=== PATIENT | female | born 1975 | race American Indian/Alaskan Native ===

== ENCOUNTER 2021-09-03 08:53 | Outpatient (CLI) | payer BC ==
[2021-09-03] MEDS ORDERED: LIDOCAINE (1%) 10 MG/1 ML VIAL 20 ML MDV ONE (09:30)
--- NOTE | 2021-09-03 16:11 | Ultrasound Report ---
ULTRASOUND GUIDED RIGHT BREAST BIOPSY, 09/03/2021 DIAGNOSTIC MAMMOGRAM, RIGHT CLINICAL INFORMATION / INDICATION: Right breast mass. COMPARISON: Mammogram and ultrasound from an outlying facility PROCEDURE: Risks, benefits, and indications to the procedure were discussed with the patient in detail, includin g bleeding, infection, hematoma formation, and inadequate tissue sampling. The patient agreed to proc eed with both verbal and written consent. A timeout procedure was performed with two patient identifi ers. The breast was prepped and draped in the usual sterile fashion. Lidocaine 1% with and without epineph rine were used for local anesthesia. Under direct ultrasound guidance, four 14-gauge core samples wer e obtained of the 1 cm hypoechoic mass in the right breast at 7:00. A biopsy marker was then placed. Biopsy device was removed and hemostasis achieved with manual pressure. A sterile dressing was appli ed to the skin. The patient tolerated the procedure without difficulty. No complications were encountered. Postbiopsy mammogram was obtained to demonstrate good placement of the biopsy clip previously biopsie d right breast mass. Postbiopsy instructions were discussed with the patient and given in writing. Specimens were sent to pathology. IMPRESSION: 1. Technically successful ultrasound guided right breast biopsy. Signer Name: Hill Kaur Jr, MD Signed: 09/03/2021 4:07 PM Workstation Name: [id number]
== END 2021-09-03 08:54 | disposition home or self-care (01) ==
LOC: US 08:53
PROVIDERS: ATTEND Nurse Practitioner Acute Care
DX: N63.23 Unspecified lump in the left breast, lower outer quadrant (principal); R92.8 Other abnormal and inconclusive findings on diagnostic imaging of breast; N64.89 Other specified disorders of breast
CPT/HCPCS: 88305